=== PATIENT | male | born 1970 | race Caucasian/White ===

== ENCOUNTER 2024-02-04 05:59 | Observation (INO) | payer BC ==
[2024-01-31 09:22] LABS: Specific Gravity 1.019 (1.005-1.030); Urine Bilirubin NEGATIVE (Negative); Urine Blood Negative (Negative); Urine Clarity Clear (Clear); Urine Color Light-Yellow (Yellow); Urine Glucose NEGATIVE (Negative); Urine Ketones NEGATIVE (Negative); Urine Microscopic Reflex YN NO UMIC; Urine Nitrite NEGATIVE (Negative); Urine Protein NEGATIVE (Negative); Urine Urobilinogen Normal (Normal); Urine pH 5.5 (5.0-7.0)
[2024-01-31 09:27] LABS: PT Prothrombin Time 11.2 SECONDS (9.5-12.5); Protime INR 1.02
[2024-02-04] MEDS: Ringers Lactate 1,000 ML IV ONE ×2 (06:30→10:00)
[2024-02-04] MEDS ORDERED: TRANEXAMIC ACID 1,000 MG/10 ML VIAL IV ONE (06:34)
[2024-02-04] MEDS ORDERED: EPINEPHRINE 1 MG/ML VIAL ONE (06:39)
[2024-02-04] MEDS ORDERED: BUPIVACAINE 0.75% (PF) 2 ML SP ONE (06:39)
[2024-02-04] MEDS ORDERED: MORPHINE SULFATE/PF 1 MG/ML (10 ML AMP) ONE (06:39)
[2024-02-04] MEDS ORDERED: ONDANSETRON 4 MG/2 ML VIAL ONE (06:48)
[2024-02-04] MEDS ORDERED: propofoL 200 MG/20 ML VIAL IV ONE (06:48)
[2024-02-04] MEDS ORDERED: LIDOCAINE 2% MPF 5 ML VIAL ONE (06:48)
[2024-02-04] MEDS ORDERED: MIDAZOLAM HCL 2 MG/2 ML INJ ONE (06:48)
[2024-02-04] MEDS: CELECOXIB 100 MG CAPSULE ONE (06:58)
[2024-02-04] MEDS: ACETAMINOPHEN 500 MG TAB ONE (06:58)
[2024-02-04] MEDS: GABAPENTIN 100 MG CAP ONE (06:59)
[2024-02-04] MEDS: Oxycodone HCl/Acetaminophen 5/325 MG TAB ONE (06:59)
[2024-02-04] MEDS ORDERED: SUCCINYLCHOLINE 20 MG/ML (10 ML) IV ONE (07:37)
[2024-02-04] MEDS ORDERED: dexAMETHasone 10 MG/ML VIAL ONE (08:19)
[2024-02-04] MEDS ORDERED: EPHEDRINE SULF 50 MG/ML VIAL ONE (08:22)
[2024-02-04] MEDS ORDERED: GLYCOPYRROLATE 0.2 MG/ML SYR ONE (08:28)
[2024-02-04] MEDS: CEFAZOLIN SODIUM 2 GM/VIAL ONE (08:29)
[2024-02-04] MEDS ORDERED: DOCUSATE NA 100 MG CAP PO PRN (10:18)
--- NOTE | 2024-02-04 10:23 | P.BOP ---
Preoperative diagnosis: left hip avn/arthritis Postoperative diagnosis: same Primary procedure: left total hip Estimated blood loss: 150 Anesthesia: General Transferred to: Recovery Room Condition: Good
[2024-02-04] MEDS ORDERED: DIPHENHYDRAMINE 50 MG/ML VIAL IV PRN (10:41)
[2024-02-04] MEDS ORDERED: NALOXONE 0.4 MG/ML VIAL IM PRN (10:41)
[2024-02-04 11:03] LABS: Hematocrit 46.3 % (39.6-49.0); Hemoglobin 15.5 g/dL (13.6-17.9)
--- OUTSIDE RECORDS SUMMARY | 2024-02-04 11:36 | XMS REPORT | Continuity of Care Document ---
Author Name Unknown Address [address] [facility] [address] [facility] [address] [facility] [address] [place] [address] Care Team Providers Care Administrative Fellow Name Role Phone Emre Romo Attending Clinician [facility] Physician, No Primary or Family Admitting Clinic lui Unavailable Payers Payer Name Policy Type Policy Number Effective Date Expirati on Date Source Allergies, Adverse Reactions, Alerts Allergy Name Allergy Type Status Severity Reaction(s) Onset Date Inactive Date Treating Clinician Comments Source No Known Allergie s DA Active U 12-05 00:00: 00 [facility] Encounters Start Date/Time End Date/Time Encounter Type Admission Type Attending Clinicians Care Facility Care Department Encounter ID Source 2023-12-06 14:24:00 2023-12-06 16:27:00 Emergency EM Emre Romo [facility] [id number] 37 [facility] Notes Date/Time Note Provider Source 2023-12-06 14:45:00 [id number]:45:00 [facility] ([facility])EMERGENCY PROVIDER REPORTREPORT#:[id number] REPORT STATUS: SignedDATE:12/06/23 TIME: 1445 PATIENT: JESS ALBERTO UNIT #: [id number]#: [id number] ROOM/BED:AGE: 52 SEX: M PCP PHYS: No Primary or Family PhysicianSERVICE AUTHOR: Dominick Collazo FLOOR FINISHER * ALL edits or amendments must be made on the electronic/computer document * Dominick Collazo 12/06/23 1445:HPI-Hip/Pelvis Prob/Inj Free Text HPI NotesFree Text HPI NotesPatient presents to the ED with left hip pain for 3 weeks. Pain has been getting worse last week. Patient works construction. Denies trauma. Denies pain with urination, blood in urine, flank pain, chest pain, shortness of breath, vomiting, diarrhea, abdominal pain. Has chronic history of low back pain. Denies bowel bladder dysfunction. Denies saddle paresthesia. Has been taking ulok-rmh-mpgrugc anti-inflammatories for pain. GeneralConfirmed Patient YesInitial Greet Date/Time 12/06/23 1426 PresentationChief Complaint Hip pain L Review of Systems ROS StatementsAll systems rev neg except as marked. Focused Review of SystemsMusculoskeletalReports: Joint pain, Lumbar pain. Denies: Back pain, Extremity pain, Extremity swelling, Joint swelling, Myalgia, Neck pain, Thoracic pain. Past Medical History - AdultStated Complaint LEFT HIP PAINAllergiesCoded Allergies:No Known Allergies (12/06/23) Pt reports no significant: Past medical history, Past surgical historySmoking status for patients 13 years old or older: Current every day smoker Physical Exam Vital SignsVital SignsFirst Documented: Result Date Time Pulse Ox 98 12/05 1424 B/P 157/90 12/05 1424 B/P Mean 112 12/05 1424 O2 Delivery Room air 12/05 142 Temp 36.6 12/05 1424 Pulse 90 12/05 1424 Resp 15 12/06 1423 Last Documented: Result Date Time Pulse Ox 98 12/05 1424 B/P 157/90 12/05 1424 B/P Mean 112 12/05 1424 O2 Delivery Room air 12/05 142 Temp 36.6 12/05 1424 Pulse 90 12/05 1424 Resp 15 12/05 142 Review of Vital Signs Reviewed Focused PEMS Lower Extrem Left Hip Tenderness present, Antalgic gait, ROM reduced. Negative: Swelling present, Deformity present, Neuro deficit present. Left Knee Negative: Swelling present, Tenderness present, ROM painful. Left Leg/Calf Negative: Swelling present, Tenderness present, R calf > L calf, Thompson's signpositive. Free Text PE NotesFree Text PE NotesGeneral/Const General/Const Awake, Alert, No apparent distress, Well appearing, Cooperative, No irritabilityMS Neck Neck Atraumatic, Supple, Non-tenderResp/Chest Respiratory/Chest Breath sounds NL, No respiratory distress, No wheezingCardiovascular Cardiovascular Heart rate NL, Regular rhythm, Heart sounds NLAbdomen/GI Abdomen/GI Atraumatic, Soft, Non-tender, No distentionMS Back Flank/Spine/Paraspinal Lumbar paraspinal tend. Negative: Thorac paraspinal tend, Sacral paraspinal tend Neurologic Neurologic Orientation NL for age, Speech NL for age, No motor deficits, No sensory deficits, gait NL, straight leg raise negative Additional PEMS Head Head Atraumatic, NormocephalicEyes Eyes Atraumatic, No periorbital swelling, No photophobia, No scleral icterusEars/Nose/Throat Ears/Nose/Throat Atraumatic, Airway patent, No pooling of secretions, No trismus, No facial swellingLymphatic Lymphatic No gross adenopathySkin Skin No rash, Warm, Dry, IntactPsychiatric Psychiatric Affect NL, Mood NL, Cognitive function NL Interpretation Diagnostics Lab Results InterpretationResultsRecent Impressions:RADIOLOGY - XR L-SPINE 2/3 VIEWS 12/05 1450 Report Impression - Status: SIGNED Entered: 12/06/2023 1558 IMPRESSION: There are mild degenerative changes in the lumbar spine. However nofracture or malalignment is seen. Location: HCAImpression By: Davi HOLMADIOLOGY - XR HIP W/PEL UNI 2+V LT 12/05 1451 Report Impression - Status: SIGNED Entered: 12/06/2023 1553 IMPRESSION: Negative radiographic examination of the bony pelvis andleft hip. Location: HCAImpression By: Davi Rice MD Imaging StatementRadiographic studies reviewed and considered in the medical decision-making. Point of Care TestingPulse Oximetry Pulse Ox % 98 On: Room air Interpretation Interpreted by me Re-Evaluation MDM Re-Evaluation/Progress Compartment SyndromeThere are no signs or symptoms of compartment syndrome in the injured extremity at the time of this examination. Any pain the patient has is in proportion to the injury, the peripheral circulation is intact, capillary refill is not delayed, and there is no numbness, tingling or paresthesia. ED CourseMedication(s) OrderedMedication(s) Ordered:Central Nervous System Agents Sig/Robin Start time Last Medication Dose Route Stop Time Status Admin Acetaminophen/ 1 UDTAB X1ED STA 12/05 1605 DC Codeine Phosphate PO 12/05 160 Free Text MDM NotesFree Text MDM NotesDifferential lower extremity Abrasion, Ankle dislocation, Calcaneal fracture, Cellulitis, Compartment syndrome, Contusion, Fibular fracture, Hematoma, Hip dislocation ant, Hip dislocation post, Hip fracture, Knee effusion, Knee fracture, Knee ligament injury, Metatarsal fracture, Neurovascular injury, Open fracture, Patellar dislocation, Pelvic fracture, Phalanx middle fracture, Plantar fasciitis, Slipped cap fem epiph, Sprain, Strain, Tibial shaft fracture, Tripod fracture Patient Discharge Departure Vital Signs/ConditionVital SignsFirst Documented: Result Date Time Pulse Ox 98 12/05 1424 B/P 157/90 12/05 1424 B/P Mean 112 12/05 1424 O2 Delivery Room air 12/05 1424 Temp 36.6 12/05 1424 Pulse 90 12/05 1424 Resp 15 12/05 1424 Last Documented: Result Date Time Pulse Ox 98 12/05 1424 B/P 157/90 12/05 1424 B/P Mean 112 12/05 1424 O2 Delivery Room air 12/05 1424 Temp 36.6 12/05 1424 Pulse 90 12/05 1424 Resp 15 12/05 1424 All vital signs available at the time of this entry have been reviewed. Condition Stable Clinical ImpressionClinical ImpressionPrimary Impression: Sprain of left hipSecondary Impressions: Back pain Disposition DecisionDischarge )( Discharged to Home Yes )( Time 1626 )( Date 12/06/23 Discharge/Care PlanCounseled Regarding Diagnosis, Lab results, Need for follow-up, When to return to ED(Auto) PrescriptionsCurrent Visit ScriptspredniSONE 50 MG PO DAILY 3 Days #3 TABS Patient Instructions ED Back Pain (Acute or Chronic), ED Hip StrainAdditional InstructionsFollow-up with orthopedist in 3 to 5 days. Call for appointment. Discharge NoteI have spoken with the patient and/or caregivers. I have explained the patient'scondition, diagnoses and treatment plan based on the information available to meat this time. I have answered the patient's and/or caregiver's questions and addressed any concerns. The patient and/or caregivers have as good an understanding of the patient's diagnosis, condition and treatment plan as can beexpected at this point. The vital signs have been stable. The patient's condition is stable and appropriate for discharge from the emergency department. The patient will pursue further outpatient evaluation with the primary care physician or other designated or consulting physician as outlined in the discharge instructions. The patient and/or caregivers are agreeable to this planof care and follow-up instructions have been explained in detail. The patient and/or caregivers have received these instructions in written format and have expressed an understanding of the discharge instructions. The patient and/or caregivers are aware that any significant change in condition or worsening of symptoms should prompt an immediate return to this or the closest emergency department or a call to 911. Quality MeasuresBP F/U for HTN F/u with PCP/other docLow Back/Migraine Opiate Rx 18 years or older, Dx low back pain/migraine, Discharged from ED, Opiate not prescribedSmoking Cessation Screened, tobacco userTobacco Screening/Cessation 18 years or older, Tobacco user, Counseled 3-10 minutes Emre Romo 12/08/234:Patient Discharge Departure Discharge/Care PlanReferralsProvider Referral: Valdo Camp MD Address: [address] [place] [address] Supervising Physician Note MidLv Saw Pt AloneI have reviewed the PA/FLOOR FINISHER's note and plan of care. I did not personally evaluated this patient, I was not part of patient's care. I was available for consultation as needed at all times during the patient's visit in the emergency department. at 1256 at 5824RPT #:[id number] OF REPORTEDEmergency department [id number] [facility] [id number] [facility]
--- NOTE | 2024-02-04 12:41 | RAD REPORT ---
EXAM DESCRIPTION: RAD - Hip Left 1 View - 02/04/2024 9:51 am CLINICAL HISTORY: TOTAL COMPARISON: No comparisons TECHNIQUE: Single intraoperative view of the left hip. FINDINGS: Left hip arthroplasty acetabular component in satisfactory alignment. Femoral stem compone nt in satisfactory alignment. The femoral head component is not present. Metallic devices in the surg ical field obscure evaluation. Surgical defect along the lateral aspect of the upper thigh. IMPRESSION: Intraoperative findings during left total hip arthroplasty as above.
[2024-02-04 12:44] VITALS: BMI 29.0
[2024-02-04] MEDS: CEFAZOLIN 1 GM in NA CHLORIDE 0.9% 50 ML IVPB SCH (16:27)
[2024-02-04] MEDS: METOCLOPRAMIDE 10 MG/2mL INJ IV PRN (16:30)
[2024-02-04 18:23] LABS: Hematocrit 44.1 % (39.6-49.0); Hemoglobin 14.9 g/dL (13.6-17.9)
--- NOTE | 2024-02-04 21:20 | OP ---
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 Procedure: Left total hip arthroplasty using the [place] System. Estimated Blood Loss: 150 cc. Complications: There were no complications. Indication For Operation: Mr. Salguero is a 53-year-old male who unfortunately came to my office with c omplaints of severe pain in his left hip. He had an x-ray, which demonstrated probable AVN with prox imal collapse. He had MRI of the pelvis that demonstrated AVN of the left hip with collapse as well as AVN of the right side without collapse. Risks, benefits, and alternatives of different methods of treating this have been discussed with the patient and we opted for total hip arthroplasty. He unde rstands the specific risks associated with that including leg length difference, infection, dislocati on, femur fracture, or continued or increased pain and agrees to proceed. Description Of Procedure: The patient was taken to the operating room. Spinal anesthesia was obtain ed by Anesthesia staff. Following this, he was then placed supine. Kang was placed and he was roll ed right side down. Left side was then prepped and draped in the usual sterile fashion for procedure . After this, a standard posterolateral incision was taken down carefully through skin and soft tiss ues, meticulous hemostasis being maintained using Bovie electrocautery. This led to the fascia and t he fascia was then divided with palpation of the gluteal tendon to ensure we were in the right area. This was then brought proximally until the gluteus kay muscles were encountered. They were then divided with finger pressure. After this, a sciatic nerve was protected as the Charnley was placed and some posterior fat was removed to allow for better visualization, and the external rotators and c apsule were then removed from the greater trochanter and tagged for later repair. After this, the he ad was then dislocated and a slightly longer than normal or normal neck cut was then performed. The head was highly affixed with the teres ligament and had to be removed with a corkscrew, but came out without difficulty. It was then sized to a size 51. The hip was then inspected and a fairly large t eres ligament was removed as well as the labrum and any other soft tissues within the acetabulum. Fo llowing this, it was sequentially reamed to a size 50 with significant removal of chondral tissue of all, but the most inferior anterior aspect did have bleeding bone throughout with a 50; however, 51 w as used. There was still some chondral tissue at the inferior anterior aspect; however, it was felt that further reaming most likely would not be beneficial and a size 52 cup was then placed. It appea red to have good fit, being good version. Attention was then turned to the femur. The box icer wa s used to lateralize, followed by sequential broaching. Size 3 appeared to be very tight and x-rays taken at this point demonstrated that the cup appeared to be in good version and solid with pressure. Also, the x-ray demonstrated good fill of the femurs. [place] that perhaps we could get a size 4, but given the feel as it did not appear to be in varus, I think trying to place a 4 would be unrewarding . Therefore, the decision was made to move forward with the 3. The liner was then placed in the kyle tabulum and a size 3 stem was placed. It was trialed with a neutral. The neutral appeared to be goo d, however was a little less stable than I would like with full flexion, adduction, and internal rota tion. Trialed it with a +4, which might be a little bit long, but I would rather have this as he morgan s have AVN on his contralateral side than a dislocating hip. Therefore, we decided to move with a +4 , which was then placed. It was then relocated and was stable in full flexion, full adduction, and i nternal rotation to at least 35 degrees. The wound was copiously irrigated, and external rotators an d capsule were repaired back to the trochanter via bone tunnels. It was again irrigated and the fasc ia was closed in a watertight fashion using heavy Vicryl sutures. It was again irrigated and the ski n was closed using 2-0 Vicryl sutures, followed by gregory. [facility] awakened, and taken to recovery room in good condition. There were no complications. SE/MODL Voice ID: [id number] Report ID: [id number]
[2024-02-05 03:46] LABS: Hematocrit 39.4 % (39.6-49.0); Hemoglobin 13.8 g/dL (13.6-17.9)
[2024-02-05] MEDS ORDERED: BISACODYL E.C. 5 MG TAB PO PRN (07:29)
--- NOTE | 2024-02-05 07:29 | P.PN ---
Subjective Date of Service: 02/05/2402/03 Status post left total hip Dr. Nolasco Pain control as needed analgesics, fall precautions, PT eval Review of Systems per HPI Physical Examination - Vital Signs Temperature: 97.2 F Blood Pressure: 100/86 Pulse: 92 Respirations: 16 Pulse Ox (%): 97 - Physical Exam General: Alert, In no apparent distress, Oriented x3 HEENT: Atraumatic, Normocephalic Neck: Supple, 2+ carotid pulse no bruit Respiratory: Clear to auscultation bilaterally, Normal air movement Cardiovascular: No edema, Normal pulses Capillary refill: <2 Seconds Gastrointestinal: Normal bowel sounds, Soft and benign Musculoskeletal: Other (Left hip pain, worse with range of motion) Integumentary: Other (Left surgical hip dressing clean dry and) Neurological: Normal speech, Normal strength at 5/5 x4 extr - Studies Laboratory Data (last 24 hrs) 02/05/24 02/04/24 02/04/24 02:57 18:00 10:47 Hgb 13.8 14.9 15.5 Hct 39.4 L 44.1 46.3 Assessment And Plan - Plan assessment plan Left hip avascular necrosis Left hip osteoarthritis, 02/03 Status post left total hip Dr. Nolasco PT eval, fall precaution, As needed analgesics, stool softeners Full code DVT per Ortho Diet regular Disposition, outpatient PT Discharge Plan: Home - Code Status/Comfort Care Code Status: Full Code Critical Care: No Time Spent Managing PTS Care (In Minutes): 35
[2024-02-05] MEDS: ENOXAPARIN 40 MG/0.4 ML SQ SCH (08:38)
[2024-02-05] MEDS: HYDROCODONE/APAP 7.5/325 MG TAB PO PRN (08:39)
[2024-02-05] MEDS: CYCLOBENZAPRINE 10 MG TAB PO PRN (09:00)
--- NOTE | 2024-02-05 10:03 | P.DS ---
Admission Date: 02/04/24 Discharge Date: 02/05/24 Disposition: ROUTINE DISCHARGE Discharge Condition: GOOD Hospital Course: PROBLEM: 02/03 Status post left total hip Dr. Nolasco Pain control as needed analgesics, fall precautions, PT eval Follow up w orto after discharge Rad/Lab/Micro: Continue home medicines as previously prescribed GOAL: Clear understanding of disease process INSTRUCTIONS: Physician Discharge Instructions: -Follow-up with PCP in 1 to 2 weeks -Please call Dr. Larios at [phone] if any questions regarding hospital stay -Please call nursing station at [phone] if any nursing or medication questions -Return to the emergency room if symptoms worsen Diet: ADA, low sodium Activity: Fall precautions Vital Signs/Physical Exam: Temp Pulse Resp BP Pulse Ox 97.2 F 92 H 16 100/86 97 02/05/24 07:28 02/05/24 07:28 02/05/24 07:28 02/05/24 07:28 02/05/24 07:28 Laboratory Data at Discharge: Hgb 13.8 g/dL (13.6-17.9) 02/05/24 02:57 Hct 39.4 % (39.6-49.0) L 02/05/24 02:57 PT 11.2 SECONDS (9.5-12.5) 01/31/24 09:03 INR 1.02 01/31/24 09:03 APTT 30.0 SECONDS (24.3-36.9) 01/31/24 09:03 Home Medications: Acetaminophen [Tylenol Extra Strength] 2 tab PO Q8H PRN 01/31/24 Amlodipine [Norvasc] 5 mg PO DAILY 01/31/24 Pantoprazole [Protonix Tab] 40 mg PO DAILY 01/31/24 Tramadol HCl/Acetaminophen [Ultracet Tablet] 1 each PO Q6H PRN 01/31/24 Physician Discharge Instructions: [facility] [address] [place] PT [facility] P:[phone] Followup: Fany Yuen MD [Primary Care Provider] -
[2024-02-05 10:58] VITALS: BP 127/73; TEMP 98.5
[2024-02-05 11:53] VITALS: O2SAT 95
== END 2024-02-05 12:36 | disposition home or self-care (01) ==
LOC: OR 05:59 → 2ND 11:33
PROVIDERS: ADMIT Orthopaedic Surgery; ATTEND Orthopaedic Surgery
PROC: 0SRB0JA Replacement of Left Hip Joint with Synthetic Substitute, Uncemented, Open Approach (ICD-10-PCS; principal; 2024-02-04 07:00)
DX: M16.12 Unilateral primary osteoarthritis, left hip (principal); M87.052 Idiopathic aseptic necrosis of left femur; M25.552 Pain in left hip
CPT/HCPCS: 36415 ×2; 85610; 88304; 88311; 85730; 85018 ×3; 85014 ×3; 81003; 73501; 97110; 97116 ×2; 97161; 97530 ×3; 94760 ×3; 27130; C1776 ×2; J2704; J2765; J2001; J1650; J2250; J1100; J0171; J2405; J7120 ×2; J0690 ×3; 88305; G0378; G0379